=== PATIENT | male | born 1970 | race Caucasian/White ===

== ENCOUNTER 2019-05-11 21:18 | Inpatient (IN) | payer OTHER ==
[~2019-05-11] VITALS: Ht 175.3 cm; Wt 90.7 kg
[2019-05-11] MEDS ORDERED: ONDANSETRON HCL 4MG/2ML INJ IV STA (21:35)
[2019-05-11] MEDS ORDERED: SODIUM CHLORIDE 0.9% 1,000 ML IV ONE ×2 (21:35→23:57)
[2019-05-11 22:15] LABS: CHLORIDE 103 mEq/L (98-107)
[2019-05-11 22:16] LABS: PROTHROMBIN TIME 10.4 sec (9.6-11.0)
[2019-05-11 22:19] LABS: ETHANOL BLOOD < 10 mg/dL
[2019-05-11 22:22] LABS: LDL CHOLESTEROL 108 mg/dL (5-100)
[2019-05-11 22:23] LABS: CREATINE KINASE 95 IU/L (39-308)
[2019-05-11 22:26] LABS: CREATINE KINASE MB FRACTION 1.5 ng/mL (0.5-3.6)
[2019-05-11 22:34] LABS: BASOPHILS % 0.6 % (0.0-2.0); EOSINOPHILS % 0.4 % (0.0-5.0); HEMATOCRIT. 41.3 % (42.0-52.0); HEMOGLOBIN. 13.8 g/dL (14.0-18.0); MEAN CORPUSCULAR HEMOGLOBIN 29.4 pg (28.0-32.0); MEAN CORPUSCULAR VOLUME 88.1 fL (80.0-94.0); MEAN PLATELET VOLUME 9.3 fl (7.4-10.4); PLATELET 221 x1000/uL (130-400); RED BLOOD CELL COUNT 4.69 mill/uL (4.7-6.1); RED CELL DISTRIBUTION WIDTH 13.9 % (11.6-14.6)
[2019-05-12 00:31] LABS: CLARITY URINE CLEAR (CLEAR); COLOR URINE YELLOW (YELLOW); KETONES URINE TRACE (NEGATIVE); LEUKOCYTE ESTERASE URINE NEGATIVE (NEGATIVE); NITRITE URINE NEGATIVE (NEGATIVE); OCCULT BLOOD URINE NEGATIVE (NEGATIVE); PROTEIN URINE NEGATIVE (NEGATIVE); SPECIFIC GRAVITY URINE 1.028 (1.005-1.030); UROBILINOGEN URINE 0.2 E.U./dL (0.2-1.0)
[2019-05-12 00:52] LABS: *AMPHETAMINES SCREEN URINE NEGATIVE (NEGATIVE); CANNABINOID URINE SCREEN PRESUMTIVE POSITIVE (NEGATIVE); METHADONE URINE SCREEN NEGATIVE (NEGATIVE); OPIATES URINE SCREEN NEGATIVE (NEGATIVE); PHENCYCLIDINE URINE SCREEN NEGATIVE (NEGATIVE)
[2019-05-12 00:53] LABS: *BARBITURATES SCREEN URINE NEGATIVE (NEGATIVE); *BENZODIAZEPINES SCREEN URINE NEGATIVE (NEGATIVE); *COCAINE SCREEN URINE NEGATIVE (NEGATIVE)
[2019-05-12 10:20] VITALS: BP 130/86
[2019-05-12 10:21] VITALS: BP 130/86
[2019-05-12] MEDS ORDERED: VENL-179 MT (10:37)
[2019-05-12] MEDS ORDERED: GLIP2.5T17 MT (10:37)
[2019-05-12] MEDS ORDERED: ASPI-1393 MT (10:37)
[2019-05-12] MEDS ORDERED: GLIP5TAB12 MT (10:37)
[2019-05-12] MEDS ORDERED: METF-416 MT (10:37)
[2019-05-12] MEDS ORDERED: ONDANSETRON HCL 4MG/2ML INJ IV PRN ×2 (11:00)
[2019-05-12] MEDS ORDERED: DEXTROSE 50% WATER 50ML SYRINGE IV PRN (11:00)
[2019-05-12] MEDS ORDERED: CEFTRIAXONE 2 G PREMIX 50 ML IV SCH (11:00)
[2019-05-12] MEDS ORDERED: ACETAMINOPHEN 325MG TABLET PO PRN (11:00)
[2019-05-12 12:17] VITALS: BP 138/78
[2019-05-12] MEDS: BLOOD SUGAR DIAGNOSTIC STRIP TEST SCH ×2 (12:40→17:16)
[2019-05-12] MEDS: CEFTRIAXONE 2 G in DEXTROSE 5% WATER 50 ML IV SCH ×2 (12:40→14:53)
[2019-05-12] MEDS: INSULIN LISPRO 100 UNITS/ML SUBCUT SCH ×2 (12:41→17:20)
[2019-05-12] MEDS ORDERED: VANCOMYCIN 2,000 MG in DEXT 5% WATER 500 ML IV SCH (13:00)
[2019-05-12 15:46] VITALS: BP 134/80
[2019-05-12 17:34] LABS: T4 FREE 0.75 ng/dL (0.76-1.46)
[2019-05-12 19:06] LABS: FOLIC ACID (FOLATE) SERUM 7.7 ng/mL (>5.38)
[2019-05-12 20:23] VITALS: BP 109/60
[2019-05-12] MEDS ORDERED: INSULIN GLARGINE UD 100 UNITS/ML SYR SUBCUT SCH (22:00)
[2019-05-12] MEDS ORDERED: VANCOMYCIN 1250MG in DEXTROSE 5% WATER 250ML IV SCH (23:00)
[2019-05-13] VITALS: BP 130/96
[2019-05-13 04:00] VITALS: BP 105/65
[2019-05-13 06:18] LABS: CHLORIDE 107 mEq/L (98-107); HEMATOCRIT. 40.4 % (42.0-52.0); HEMOGLOBIN. 13.8 g/dL (14.0-18.0); LYMPHOCYTES % 34.5 % (20.0-50.0); MEAN CORPUSCULAR HEMOGLOBIN 29.7 pg (28.0-32.0); MEAN CORPUSCULAR VOLUME 86.8 fL (80.0-94.0); MEAN PLATELET VOLUME 8.8 fl (7.4-10.4); MONOCYTES % 6.6 % (2.0-8.0); NEUTROPHILS % 53.9 % (40.0-76.0); PLATELET 228 x1000/uL (130-400); RED BLOOD CELL COUNT 4.65 mill/uL (4.7-6.1); RED CELL DISTRIBUTION WIDTH 14.1 % (11.6-14.6)
[2019-05-13 07:56] VITALS: BP 142/89
[2019-05-13] MEDS: INSULIN LISPRO 100 UNITS/ML SUBCUT SCH ×2 (08:24→08:59)
[2019-05-13] MEDS ORDERED: LORAZEPAM 2MG/ML CPJ IV SCH (09:15)
[2019-05-13 11:42] VITALS: BP 143/90
[2019-05-13 11:49] VITALS: BP 143/90
== END 2019-05-13 12:17 | disposition home or self-care (01) | DRG 871 ==
LOC: ER 21:18 → 6WST 05-12 00:19 → EDBEDREQDT 05-12 00:22 → EDBEDREQ 05-12 00:22 → EDBEDREQTM 05-12 00:22 → EDBEDREQSVC 05-12 03:05 → EDBEDREQTM 05-12 03:05 → ENRESERV 05-12 08:00
PROVIDERS: ADMIT Internal Medicine; ATTEND Internal Medicine
DX: A41.9 Sepsis, unspecified organism (principal); G92 Toxic encephalopathy; I10 Essential (primary) hypertension; F12.90 Cannabis use, unspecified, uncomplicated; E78.5 Hyperlipidemia, unspecified; E11.9 Type 2 diabetes mellitus without complications; J32.9 Chronic sinusitis, unspecified; Z79.899 Other long term (current) drug therapy
CPT/HCPCS: 36415; 71045; 80048; 80305; 80320; 82140; 82550; 82553; 82607; 82746; 82962; 83036; 83721; 83880; 84145; 84439; 84443; 84481; 84484; 93005; 93970; 96374; 99285; J0696; J1815; J2405; J3370; J7030; J7050; J7060; A4315; G0480

== ENCOUNTER 2019-05-14 12:00 | Emergency (ER) | payer OTHER ==
[~2019-05-14] VITALS: Ht 175.3 cm; Wt 85.0 kg
[~2019-05-14 12:00] MED LIST: ASPI-1393 MT; GLIP5TAB12 MT; METF-416 MT; VENL-179 MT
[2019-05-14 14:30] VITALS: BP 155/105
== END 2019-05-14 14:34 | disposition home or self-care (01) ==
LOC: ER 12:00
DX: E11.65 Type 2 diabetes mellitus with hyperglycemia (principal); I10 Essential (primary) hypertension; Z79.82 Long term (current) use of aspirin
CPT/HCPCS: 82962; 99283